=== PATIENT | female | born 1970 | race Caucasian/White ===

== ENCOUNTER 2016-12-31 21:28 | Observation (INO) | payer OTHER ==
[~2016-12-31] VITALS: Ht 149.9 cm; Wt 82.0 kg
[2016-12-31 21:35] VITALS: BP 146/73; PULSE 113; RESP 18; TEMP 98.4; O2SAT 98
[2016-12-31] MEDS ORDERED: SODIUM CHLOR 0.9% 1000 ML INJ 1,000 ML IV SCH (22:42)
[2016-12-31] MEDS ORDERED: MORPHINE SULFATE 4 MG/ML INJ IV PUSH ONE (22:45)
[2016-12-31] MEDS ORDERED: ONDANSETRON HCL 4 MG/2 ML VIAL IVP ONE (22:45)
--- NOTE | 2016-12-31 22:48 | PD ---
HPI Chief Complaint: Abdominal Pain Time Seen by Provider: 22:45 Travel History International Travel<30 days: No Contact w/Intl Traveler<30days: No Traveled to known affect area: No History of Present Illness HPI 38-year-old female that presents to the ED for evaluation of severe right lower quadrant abdominal pain. Patient has had this pain since 3:00 today. Per patient she was able to finish most of her shift but the pain has progressively getting worse and is not getting better. She reports no nausea or vomiting. Per patient she's had normal bowel movements. Per patient she had one of her tubes removed from his ear she's been taking Lortab and she was concerned missionary constipated but she's had a bowel movement today. Normal. She still has her appendix. She's had had surgeries in her abdomen. She has no allergies to medication. No chest pain or shortness of breath. Pain is 10 out of 10. PFSH Past Medical History Immunizations Current: Yes ?: Not Past Surgical History Section: Yes (X2) Gynecologic Surgery: Yes (UTERINE ABLATION) Oral Surgery: Yes Tonsillectomy: Yes Social History Alcohol Use: Yes Tobacco Use: Yes Substance Use: No Allergies-Medications (Allergen,Severity, Reaction): Coded Allergies: No Known Allergies (Unverified , 12/31/16) Review of Systems Except as stated in HPI: all other systems reviewed are Neg Physical Exam Narrative GENERAL: SKIN: Warm and dry. HEAD: Atraumatic. Normocephalic. EYES: Pupils equal and round. No scleral icterus. No injection or drainage. ENT: No nasal bleeding or discharge. Mucous membranes pink and moist. Tongue is midline. No uvula deviation. NECK: Trachea midline. No JVD. CARDIOVASCULAR: Regular rate and rhythm. No murmurs, S3, S4. RESPIRATORY: No accessory muscle use. Clear to auscultation. Breath sounds equal bilaterally. GASTROINTESTINAL: Abdomen soft, patient has reproducible pain on the right lower quadrant, patient has referred pain when touch in the left lower quadrant on the right, nondistended. Hepatic and splenic margins not palpable. MUSCULOSKELETAL: Extremities without clubbing, cyanosis, or edema. No obvious deformities. Full range of motion of the upper and lower extremities bilaterally. 2+ pulses bilaterally. NEUROLOGICAL: Awake and alert. No obvious cranial nerve deficits. Motor grossly within normal limits. Five out of 5 muscle strength in the arms and legs. Normal speech. PSYCHIATRIC: Appropriate mood and affect; insight and judgment normal. Data Data Last Documented VS Vital Signs Date Time Temp Pulse Resp B/P Pulse Ox O2 Delivery O2 Flow Rate FiO2 12/31/16 21:35 98.4 113 18 146/73 98 Room Air Orders Complete Blood Count With Diff (12/31/16 22:42) Comprehensive Metabolic Panel (12/31/16 22:42) Lipase (12/31/16 22:42) Lactic Acid (12/31/16 22:42) Urinalysis - C+S If Indicated (12/31/16 22:42) Ct Abd/Pel W Iv Contrast(Rout) (12/31/16 22:42) Iv Access Insert/Monitor (12/31/16 22:42) Morphine Inj (Morphine Inj) (12/31/16 22:45) Ondansetron Inj (Zofran Inj) (12/31/16 22:45) Sodium Chlor 0.9% 1000 Ml Inj (Ns 1000 M (12/31/16 22:42) Ed Urine Pregnancytest Poc (12/31/16 22:42) [facility] Medical Decision Making Medical Screen Exam Complete: Yes Emergency Medical Condition: Yes Medical Record Reviewed: Yes Differential Diagnosis Acute appendicitis versus diverticulitis versus kidney stone versus constipation versus obstruction Narrative Course 38-year-old female that presents to the ED for evaluation of right lower quadrant abdominal pain. Patient was properly examined and was found to have signs and symptoms very consistent and concerning for appendicitis. Labs and imaging were ordered. Patient was given IV pain medications and fluids. Case was signed out to my attending pending disposition. Eliazar Noel Dec 31, 2016 22:48
[2016-12-31] MEDS ORDERED: MORPHINE SULFATE 8 MG/ML INJ IV PUSH ONE (23:00)
[2016-12-31 23:20] LABS: AUTOMATED NEUTROPHIL # 16.5 TH/MM3 (1.8-7.7); BASOPHIL # 0.1 TH/MM3 (0-0.2); BASOPHIL % 0.3 % (0.0-2.0); EOSINOPHIL # 0.2 TH/MM3 (0-0.4); EOSINOPHIL % 0.7 % (0.0-4.0); HEMATOCRIT 39.4 % (35.0-46.0); HEMO FLAGS DIFF FINAL; LYMPH % 12.3 % (9.0-44.0); LYMPHOCYTE # 2.6 TH/MM3 (1.0-4.8); MEAN CELL VOLUME 90.7 FL (80.0-100.0); MEAN CORPUSCULAR HEMOGLOBIN 31.1 PG (27.0-34.0); MEAN CORPUSCULAR HGB CONC 34.3 % (32.0-36.0); MONO % 7.8 % (0.0-8.0); NEUT % 78.9 % (16.0-70.0); PLATELET COUNT 232 TH/MM3 (150-450); RED BLOOD COUNT 4.34 MIL/MM3 (4.00-5.30); RED CELL DISTRIBUTION WIDTH 13.9 % (11.6-17.2); WHITE BLOOD COUNT 20.9 TH/MM3 (4.0-11.0)
--- NOTE | 2016-12-31 23:31 | RADRPT ---
EXAM DATE/TIME: 12/31/2016 23:16 [place] COMPARISON: No previous studies available for comparison. INDICATIONS : Right lower quadrant pain; rule out appendicitis. ORAL CONTRAST: No oral contrast ingested. RADIATION DOSE: 16.68 CTDIvol (mGy) MEDICAL HISTORY : None SURGICAL HISTORY : section. ENCOUNTER: Initial ACUITY: 1 day PAIN SCALE: 10/10 LOCATION: Right lower quadrant abdomen TECHNIQUE: Volumetric scanning of the abdomen and pelvis was performed. Using automated exposure control and ad justment of the mA and/or kV according to patient size, radiation dose was kept as low as reasonably achievable to obtain optimal diagnostic quality images. DICOM format image data is available electro nically for review and comparison. FINDINGS: Liver, gallbladder, spleen, pancreas, stomach, adrenal glands, kidneys are unremarkable. Atherosclero tic calcifications of the aorta are identified. There is a fat containing umbilical hernia and a smal l infraumbilical fat containing hernia at the midline. Urinary bladder is unremarkable. Uterus and ov carroll are unremarkable. No evidence of bowel obstruction, free fluid or free air. Appendix is normal. No inflammatory changes are seen. Lung bases are clear. Osseous structures are intact. CONCLUSION: 1. No evidence of appendicitis. 2. Fat-containing umbilical hernia and infraumbilical fat-containing hernia is noted. 3. Aortic atherosclerosis. Jorge Grant MD on December 31, 2016 at 23:28 Board Certified Radiologist. This report was verified electronically.
[2016-12-31 23:40] LABS: ALT (GPT) 31 U/L (10-53)
[2016-12-31 23:43] LABS: ALKALINE PHOSPHATASE 114 U/L (45-117); TOTAL BILIRUBIN ADULT 0.4 MG/DL (0.2-1.0)
[2016-12-31] MEDS ORDERED: PIPERACIL-TAZO 4.5 GM PREMIX 100 ML IV ONE (23:45)
[2017-01-01] VITALS (9 sets, daily range): BP systolic 93–132; BP diastolic 52–61; PULSE 86–100; RESP 16–20; TEMP 97.8–99.7; O2SAT 93–95
[2017-01-01 00:14] LABS: ANION GAP 7 MEQ/L (5-15); AST (GOT) 25 U/L (15-37); BICARBONATE 23.5 MEQ/L (21.0-32.0); BLOOD UREA NITROGEN 10 MG/DL (7-18); CHLORIDE 106 MEQ/L (98-107); GLOMERULAR FILTRATION RATE 91 ML/MIN (>89); POTASSIUM 4.2 MEQ/L (3.5-5.1); SODIUM (NA) 136 MEQ/L (136-145)
[2017-01-01] MEDS ORDERED: MORPHINE SULFATE 8 MG/ML INJ IV PUSH ONE ×2 (00:45→01:45)
[2017-01-01 01:08] LABS: BLOOD, URINE NEG (NEG); GLUCOSE,URINE NEG (NEG); KETONE, URINE NEG (NEG); NITRITE,URINE NEG (NEG); URINE COLOR LIGHT-YELLOW (YELLW/STRAW)
[2017-01-01 01:24] LABS: COMMENT (UR) CULT NOT INDICATED; CULTURE IF INDICATED CULT NOT INDICATED
--- NOTE | 2017-01-01 01:33 | PD ---
Data Data Last Documented VS Vital Signs Date Time Temp Pulse Resp B/P Pulse Ox O2 Delivery O2 Flow Rate FiO2 01/01/17 00:50 95 18 132/59 95 Room Air 12/31/16 21:35 98.4 Orders Complete Blood Count With Diff (12/31/16 22:42) Comprehensive Metabolic Panel (12/31/16 22:42) Lipase (12/31/16 22:42) Lactic Acid (12/31/16 22:42) Urinalysis - C+S If Indicated (12/31/16 22:42) Iv Access Insert/Monitor (12/31/16 22:42) Morphine Inj (Morphine Inj) (12/31/16 22:45) Ondansetron Inj (Zofran Inj) (12/31/16 22:45) Sodium Chlor 0.9% 1000 Ml Inj (Ns 1000 M (12/31/16 22:42) Ed Urine Pregnancytest Poc (12/31/16 22:42) Morphine Inj (Morphine Inj) (12/31/16 23:00) Ct Abd/Pel W/O Iv Contrast (12/31/16 23:10) Piperacil-Tazo 4.5 Gm Premix (Zosyn 4.5 (12/31/16 23:45) Morphine Inj (Morphine Inj) (01/01/17 00:45) Admit Order (Ed Use Only) (01/01/17 01:33) Diet Clear Liquid (01/01/17 Breakfast) Activity Oob Ad Alla (01/01/17 01:33) Vital Signs (Adult) AISHA.Q4H (01/01/17 01:33) Labs Laboratory Tests Test 12/31/16 01/01/17 22:50 00:00 White Blood Count 20.9 TH/MM3 Red Blood Count 4.34 MIL/MM3 Hemoglobin 13.5 GM/DL Hematocrit 39.4 % Mean Corpuscular Volume 90.7 FL Mean Corpuscular Hemoglobin 31.1 PG Mean Corpuscular Hemoglobin 34.3 % Concent Red Cell Distribution Width 13.9 % Platelet Count 232 TH/MM3 Mean Platelet Volume 7.7 FL Neutrophils (%) (Auto) 78.9 % Lymphocytes (%) (Auto) 12.3 % Monocytes (%) (Auto) 7.8 % Eosinophils (%) (Auto) 0.7 % Basophils (%) (Auto) 0.3 % Neutrophils # (Auto) 16.5 TH/MM3 Lymphocytes # (Auto) 2.6 TH/MM3 Monocytes # (Auto) 1.6 TH/MM3 Eosinophils # (Auto) 0.2 TH/MM3 Basophils # (Auto) 0.1 TH/MM3 CBC Comment DIFF FINAL Differential Comment Lactic Acid Level 1.4 mmol/L Sodium Level 136 MEQ/L Potassium Level 4.2 MEQ/L Chloride Level 106 MEQ/L Carbon Dioxide Level 23.5 MEQ/L Anion Gap 7 MEQ/L Blood Urea Nitrogen 10 MG/DL Creatinine 0.69 MG/DL Estimat Glomerular Filtration 91 ML/MIN Rate Random Glucose 104 MG/DL Calcium Level 9.1 MG/DL Total Bilirubin 0.4 MG/DL Aspartate Amino Transf 25 U/L (AST/SGOT) Alanine Aminotransferase 31 U/L (ALT/SGPT) Alkaline Phosphatase 114 U/L Total Protein 7.3 GM/DL Albumin 3.8 GM/DL Lipase 213 U/L Urine Color LIGHT-YELLOW Urine Turbidity CLEAR Urine pH 5.0 Urine Specific [place] 1.005 Urine Protein NEG mg/dL Urine Glucose (UA) NEG mg/dL Urine Ketones NEG mg/dL Urine Occult Blood NEG Urine Nitrite NEG Urine Bilirubin NEG Urine Urobilinogen LESS THAN 2.0 MG/DL Urine Leukocyte Esterase NEG Urine RBC LESS THAN 1 /hpf Urine WBC LESS THAN 1 /hpf Microscopic Urinalysis Comment CULT NOT INDICATED MDM Supervised Visit with LAQUITA: Yes Narrative Course I, Dr. Shelby, have reviewed the advance practice practioner's documentation and am in agreement, met with the patient face to face, made the diagnosis, and the medical decision making was done by me. *My assessment and Findings: Patient is a 38-year-old female who presents emergency Department with complaint of right lower quadrant abdominal pain. 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 While on shift today at approximately 3 PM she developed right lower quadrant abdominal pain. This is gradually worsened. When she went home she felt nauseous, but no vomiting. She returns the emergency department for evaluation. She denies any urinary symptoms or previous abdominal surgeries. Patient is quite tender, greatest at McBurney's point in the right lower quadrant. Strong concern for appendicitis versus ureterolithiasis and less likely UTI. Laboratory workup notable for leukocytosis of 20,000. Patient was empirically covered with Zosyn. CT of the abdomen and pelvis is negative, the appendix looks normal and does not appear to be any other infectious source. I still am concerned for early appendicitis that we are missing radiographically and patient is still quite uncomfortable despite repeat doses of morphine. Patient will be admitted for observation and serial abdominal examinations. Diagnosis Primary Impression: Abdominal pain, acute, right lower quadrant Additional Impression: Leukocytosis Qualified Code: D72.829 - Leukocytosis, unspecified type Admitting Information Admitting Physician Requests: Mary Segundo MD Jan 01, 2017 01:33
[2017-01-01] MEDS ORDERED: oxyCODONE/ACETAMINOPHEN 5 MG/325 MG TAB PO ONE (01:45)
[2017-01-01] MEDS ORDERED: LEXA20TA PO (04:00)
[2017-01-01] MEDS ORDERED: MORPHINE SULFATE 8 MG/ML INJ IV PUSH PRN (11:15)
[2017-01-01] MEDS: ONDANSETRON HCL 4 MG/2 ML VIAL IV PUSH PRN ×2 (11:36→20:28)
[2017-01-01] MEDS ORDERED: PROMETHAZINE HCL 25 MG TAB PO PRN (11:45)
[2017-01-01] MEDS ORDERED: METOCLOPRAMIDE HCL 10 MG/2 ML VIAL IV PUSH ONE (11:45)
[2017-01-01] MEDS ORDERED: KETOROLAC TROMETHAMINE 30 MG/ML (IVP) VIAL IV PUSH ONE (11:45)
[2017-01-01] MEDS ORDERED: PROMETHAZINE HCL 25 MG SUPP RECTAL PRN (11:45)
--- NOTE | 2017-01-01 11:46 | HHI.PR ---
Subjective Remarks vomiting with rlq pains Objective Vitals vomiting oriented no labored breathing sweating heart reg lung cta abd bs/rlq tender. no rebound or distention. ext no edema Vital Signs Date Time Temp Pulse Resp B/P Pulse Ox O2 Delivery O2 Flow Rate FiO2 01/01/17 08:17 97.8 90 18 96/54 95 01/01/17 06:12 129/61 01/01/17 04:19 98.4 98 20 94 01/01/17 03:53 100 16 112/53 93 Aerosol Mask 01/01/17 00:50 95 18 132/59 95 Room Air 12/31/16 21:35 98.4 113 18 146/73 98 Room Air 12/31/16 12/31/16 01/01/17 15:00 23:00 07:00 Intake Total 250 ml Balance 250 ml Intake Oral 250 ml Result Diagram: 12/31/16224912/31/160 A/P Problem List: (1) Abdominal pain, acute, right lower quadrant Status: Acute Plan: Presents with acute rlq pain of unclear etiology CT a/p negative for acute process no evidence for colitis/obstruction/stone/uterine or ovarian abnormality. no findings of kidney stone or abnormality with urinalysis Pt currently vomiting wbc 20k. was taking some pain meds this past week for dental procedure. ...mild increase in stool right colon. supportive care toradol now ppi/reglan/antiemetics clears prn pain meds...?morphine contributing to vomiting consider reimaging within next 24 hr if no better. Colin Davidson MD Jan 01, 2017 11:46
--- NOTE | 2017-01-01 11:48 | HHI.HP ---
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 she recently moved to [place]. Yesterday has sudden onset rlq pain with nausea. This morning now having some nausea/vomiting. No constipation or diarrhea. no fever/chills or any new medication other than pain med given last week after dental procedure. No blood in stool and no dysuria or hx kidney stones. no vaginal bleeding reported. ED was concerned about appendicitis but ct a/p was negative for acute process. she had wbc 20k and given zosyn. Review of Systems Other rlq pain n/v Past Family Social History Past Medical History depression c sections endometrial ablation exp lap for "lysis of adhesions in pelvis" Reported Medications Reported Meds & Active Scripts Active Reported Lexapro (Escitalopram Oxalate) 20 Mg Tab 20 Mg PO DAILY Allergies: Coded Allergies: No Known Allergies (Unverified , 12/31/16) Family History nc Social History 1ppd tob no sig etoh Physical Exam Vital Signs vomiting oriented no labored breathing sweating heart reg lung cta abd bs/rlq tender. no rebound or distention. ext no edema Laboratory Laboratory Tests Test 12/31/16 01/01/17 22:50 00:00 White Blood Count 20.9 Red Blood Count 4.34 Hemoglobin 13.5 Hematocrit 39.4 Mean Corpuscular Volume 90.7 Mean Corpuscular Hemoglobin 31.1 Mean Corpuscular Hemoglobin 34.3 Concent Red Cell Distribution Width 13.9 Platelet Count 232 Mean Platelet Volume 7.7 Neutrophils (%) (Auto) 78.9 Lymphocytes (%) (Auto) 12.3 Monocytes (%) (Auto) 7.8 Eosinophils (%) (Auto) 0.7 Basophils (%) (Auto) 0.3 Neutrophils # (Auto) 16.5 Lymphocytes # (Auto) 2.6 Monocytes # (Auto) 1.6 Eosinophils # (Auto) 0.2 Basophils # (Auto) 0.1 CBC Comment DIFF FINAL Differential Comment Lactic Acid Level 1.4 Sodium Level 136 Potassium Level 4.2 Chloride Level 106 Carbon Dioxide Level 23.5 Anion Gap 7 Blood Urea Nitrogen 10 Creatinine 0.69 Estimat Glomerular Filtration 91 Rate Random Glucose 104 Calcium Level 9.1 Total Bilirubin 0.4 Aspartate Amino Transf 25 (AST/SGOT) Alanine Aminotransferase 31 (ALT/SGPT) Alkaline Phosphatase 114 Total Protein 7.3 Albumin 3.8 Lipase 213 Urine Color LIGHT-YELLOW Urine Turbidity CLEAR Urine pH 5.0 Urine Specific [place] 1.005 Urine Protein NEG Urine Glucose (UA) NEG Urine Ketones NEG Urine Occult Blood NEG Urine Nitrite NEG Urine Bilirubin NEG Urine Urobilinogen LESS THAN 2.0 Urine Leukocyte Esterase NEG Urine RBC LESS THAN 1 Urine WBC LESS THAN 1 Microscopic Urinalysis Comment CULT NOT INDICATED Result Diagram: 12/31/16224912/31/162249 Assessment and Plan Problem List: (1) Abdominal pain, acute, right lower quadrant Status: Acute Plan: Presents with acute rlq pain of unclear etiology CT a/p negative for acute process no evidence for colitis/obstruction/stone/uterine or ovarian abnormality. no findings of kidney stone or abnormality with urinalysis Pt currently vomiting wbc 20k. was taking some pain meds this past week for dental procedure. ...mild increase in stool right colon. supportive care toradol now ppi/reglan/antiemetics clears prn pain meds...?morphine contributing to vomiting consider reimaging within next 24 hr if no better. Colin Davidson MD Jan 01, 2017 11:48 Random Glucose 104 Calcium Level 9.1 Total Bilirubin 0.4 Aspartate Amino Transf 25 (AST/SGOT) Alanine Aminotransferase 31 (ALT/SGPT) Alkaline Phosphatase 114 Total Protein 7.3 Albumin 3.8 Lipase 213 Urine Color LIGHT-YELLOW Urine Turbidity CLEAR Urine pH 5.0 Urine Specific [place] 1.005 Urine Protein NEG Urine Glucose (UA) NEG Urine Ketones NEG Urine Occult Blood NEG Urine Nitrite NEG Urine Bilirubin NEG Urine Urobilinogen LESS THAN 2.0 Urine Leukocyte Esterase NEG Urine RBC LESS THAN 1 Urine WBC LESS THAN 1 Microscopic Urinalysis Comment CULT NOT INDICATED Result Diagram: 12/31/16224912/31/162249 Assessment and Plan Problem List: (1) Abdominal pain, acute, right lower quadrant Status: Acute Plan: Presents with acute rlq pain of unclear etiology CT a/p negative for acute process no evidence for colitis/obstruction/stone/uterine or ovarian abnormality. no findings of kidney stone or abnormality with urinalysis Pt currently vomiting wbc 20k. was taking some pain meds this past week for dental procedure. ...mild increase in stool right colon. supportive care toradol now ppi/reglan/antiemetics clears prn pain meds...?morphine contributing to vomiting consider reimaging within next 24 hr if no better. Colin Davidson MD Jan 01, 2017 11:48
[2017-01-01] MEDS ORDERED: IBUPROFEN 400 MG TAB PO PRN (12:00)
[2017-01-01] MEDS: SODIUM CHLOR 0.9% 1000 ML INJ 1,000 ML IV SCH (12:00)
[2017-01-01] MEDS ORDERED: BISACODYL EC 5 MG TABEC PO PRN (12:15)
[2017-01-01] MEDS: PANTOPRAZOLE SODIUM 40 MG VIAL IV PUSH SCH (13:04)
[2017-01-01 13:13] LABS: AUTOMATED NEUTROPHIL # 9.9 TH/MM3 (1.8-7.7); BASOPHIL % 0.2 % (0.0-2.0); EOSINOPHIL # 0.1 TH/MM3 (0-0.4); EOSINOPHIL % 0.6 % (0.0-4.0); HEMATOCRIT 37.2 % (35.0-46.0); HEMO FLAGS DIFF FINAL; LYMPH % 9.7 % (9.0-44.0); LYMPHOCYTE # 1.1 TH/MM3 (1.0-4.8); MEAN CORPUSCULAR HEMOGLOBIN 31.1 PG (27.0-34.0); MEAN CORPUSCULAR HGB CONC 33.8 % (32.0-36.0); MONO % 6.1 % (0.0-8.0); NEUT % 83.4 % (16.0-70.0); PLATELET COUNT 208 TH/MM3 (150-450); RED BLOOD COUNT 4.05 MIL/MM3 (4.00-5.30); RED CELL DISTRIBUTION WIDTH 13.9 % (11.6-17.2); WHITE BLOOD COUNT 11.8 TH/MM3 (4.0-11.0)
[2017-01-01 13:31] LABS: BICARBONATE 25.6 MEQ/L (21.0-32.0); POTASSIUM 3.6 MEQ/L (3.5-5.1)
[2017-01-01] MEDS ORDERED: TEMAZEPAM 15 MG CAP PO PRN (14:00)
[2017-01-01] MEDS ORDERED: BISACODYL EC 5 MG TABEC PO ONE (15:00)
[2017-01-01] MEDS ORDERED: LACTULOSE SYRUP 20 GM/30 ML CUP PO ONE (15:00)
[2017-01-01] MEDS: DOCUSATE SODIUM 100 MG CAP PO SCH (20:27)
[2017-01-02 00:05] VITALS: BP 107/58; PULSE 90; RESP 17; TEMP 98.4; O2SAT 95
[2017-01-02] MEDS: SODIUM CHLOR 0.9% 1000 ML INJ 1,000 ML IV SCH ×2 (02:20→09:50)
[2017-01-02 04:04] VITALS: BP 100/62; PULSE 79; RESP 18; TEMP 98; O2SAT 96
[2017-01-02 07:37] VITALS: BP 131/64; PULSE 96; RESP 20; TEMP 98.8; O2SAT 94
[2017-01-02] MEDS ORDERED: ESCITALOPRAM OXALATE 20 MG TAB PO SCH (09:00)
[2017-01-02] MEDS: DOCUSATE SODIUM 100 MG CAP PO SCH (09:49)
[2017-01-02 11:55] VITALS: BP 128/70; PULSE 79; RESP 20; TEMP 98.8; O2SAT 98
[2017-01-02] MEDS: PANTOPRAZOLE SODIUM 40 MG VIAL IV PUSH SCH (12:19)
--- NOTE | 2017-01-02 13:21 | HHI.PR ---
Subjective Remarks No new complaints. Pt's abdominal pain is resolved. Pt now having multiple bowel movements after receiving laxative. Pt requesting discharge. Objective Vitals Vital Signs Date Time Temp Pulse Resp B/P Pulse Ox O2 Delivery O2 Flow Rate FiO2 01/02/17 11:55 98.8 79 20 128/70 98 01/02/17 07:37 98.8 96 20 131/64 94 01/02/17 04:04 98.0 79 18 100/62 96 01/02/17 00:05 98.4 90 17 107/58 95 01/01/17 21:05 98.3 01/01/17 19:38 99.2 90 17 118/59 93 01/01/17 18:37 18 01/01/17 15:38 99.7 86 16 108/52 94 Result Diagram: 01/01/17 1227 01/01/17 1227 Imaging Last Impressions Abdomen/Pelvis CT 12/31/16 2310 Signed Impressions: Service Date/Time: Saturday, December 31, 2016 23:16 - CONCLUSION: 1. No evidence of appendicitis. 2. Fat-containing umbilical hernia and infraumbilical fat-containing hernia is noted. 3. Aortic atherosclerosis. Jorge Grant MD Objective Remarks GENERAL: This is a well-nourished, well-developed patient, in no apparent distress. CARDIOVASCULAR: Regular rate and rhythm without murmurs, gallops, or rubs. RESPIRATORY: Clear to auscultation. Breath sounds equal bilaterally. No wheezes , rales, or rhonchi. GASTROINTESTINAL: Abdomen soft, non-tender, nondistended. Normal active bowel sounds MUSCULOSKELETAL: Extremities without clubbing, cyanosis, or edema. NEURO: Alert & Oriented x4 to person, place, time, situation. Moves all ext x4 A/P Problem List: (1) Abdominal pain, acute, right lower quadrant Status: Acute Plan: - Pt presented with acute rlq pain of unclear etiology and n/v - CT a/p negative for acute process - no evidence for colitis/obstruction/stone/uterine or ovarian abnormality. No findings of kidney stone or abnormality with urinalysis - wbc 20k on admission, 11.8 (01/01/17) - Pt was taking some pain meds this past week for dental procedure. - mild increase in stool right colon. - Pt given colace, laxative with resolution of above symptoms - will discharge to home - f/u with PCP in 1 week - prn MOM, prune juice Sukhi Ruelas DO Jan 02, 2017 13:21
[2017-01-02] MEDS ORDERED: MILKSUS PO (13:23)
== END 2017-01-02 14:37 | disposition home or self-care (01) ==
LOC: NEPE 21:28 → NEDA 01-01 01:35 → NEPGCP 01-01 03:54
PROVIDERS: ADMIT Hospitalist; ATTEND Hospitalist
DX: R10.31 Right lower quadrant pain (principal); D72.829 Elevated white blood cell count, unspecified; R11.2 Nausea with vomiting, unspecified; K59.00 Constipation, unspecified; K42.9 Umbilical hernia without obstruction or gangrene; I70.0 Atherosclerosis of aorta; F32.9 Major depressive disorder, single episode, unspecified; F17.200 Nicotine dependence, unspecified, uncomplicated; Z79.899 Other long term (current) drug therapy
CPT/HCPCS: 74176; 80048; 80053; 81001; 83605; 83690; 84703; 85025; 96374; 96375; 99285; C9113; G0378; J1885; J2270; J2405; J2543; J2765; J7030

== ENCOUNTER 2017-01-11 03:44 | Emergency (ER) | payer OTHER ==
[~2017-01-11] VITALS: Ht 149.9 cm; Wt 82.0 kg
[~2017-01-11 03:44] MED LIST: LEXA20TA PO; MILKSUS PO
[2017-01-11 03:47] VITALS: BP 133/66; PULSE 101; RESP 18; TEMP 98.3; O2SAT 97
[2017-01-11] MEDS ORDERED: MORPHINE SULFATE 4 MG/ML INJ IV PUSH ONE (06:00)
[2017-01-11] MEDS ORDERED: ONDANSETRON HCL 4 MG/2 ML VIAL IV ONE (06:00)
[2017-01-11] MEDS ORDERED: SODIUM CHLOR 0.9% 1000 ML INJ 1,000 ML IV ONE (06:00)
[2017-01-11 06:02] VITALS: O2SAT 97
--- NOTE | 2017-01-11 06:05 | PD ---
HPI Chief Complaint: GI Complaint Time Seen by Provider: 05:48 Travel History International Travel<30 days: No Contact w/Intl Traveler<30days: No Traveled to known affect area: No History of Present Illness HPI The patient is a 46 year old female who presents to the [facility] emergency department with a history of being on 3 different courses of antibiotics since early in December related to a dental infection and surgical treatment for the infection. The patient reports that 3 weeks ago she began to have loose stools every morning that were pale in color. She reports that she then approximately a week ago developed abrupt onset of right-sided abdominal pain. The patient was seen in the emergency department on December 31 and had a CAT scan done. Her symptoms were reportedly suspicious for appendicitis. The patient reports that her white cell count was elevated. The CT scan showed no evidence of appendicitis or any other acute abnormality, however the patient continued to have pain and was admitted to the hospital for evaluation and treatment. The patient reports that it was thought that the antibiotic use and pain medication use related to her surgical procedure and dental infection and cause her to develop worsening constipation. The patient reports that since discharge she has been using stool softeners and laxatives. She reports that she has only been producing violent watery stools and developed a recurrence of pain requiring evaluation in the walk-in clinic 2 days ago. She reports that they did a plain abdominal film and it showed that she had stool all throughout her colon. She was told to take milk of magnesia. She took milk of magnesia yesterday and 6 enemas. She reports that since then she's continued to have abdominal pain in the right side of her abdomen. She reports that today she is also had difficulty urinating without sitting hunched over. She denies having any dysuria, urinary frequency, or urinary urgency. The patient's past medical history is significant for having irritable bowel syndrome with chronic constipation. She reports that she last had a colonoscopy 3 years ago with polyps resected. She reports that over the last 3 weeks she's had a 15 pound weight loss. The patient reports that she's had nausea without vomiting. The patient denies any recent fevers, cough, congestion, neck pain, chest pain, shortness of breath, or neurologic symptoms. [facility] Past Medical History Narrative Medical The patient's past medical history is significant for irritable bowel syndrome, constipation, anxiety disorder. Blood Disorders: No Anxiety: Yes Depression: No Heart Rhythm Problems: No Cancer: No Cardiovascular Problems: No High Cholesterol: No Chest Pain: No Congestive Heart Failure: No Diminished Hearing: No Endocrine: No Gastrointestinal Disorders: Yes (IBS) Genitourinary: No Immune Disorder: No Musculoskeletal: No Neurologic: No Psychiatric: Yes Reproductive: No Respiratory: No Immunizations Current: Yes ?: Not Past Surgical History Narrative Surgical The patient's past surgical history is significant for oral surgery, uterine ablation, tonsillectomy. Section: Yes (X2) Gynecologic Surgery: Yes (UTERINE ABLATION) Oral Surgery: Yes Tonsillectomy: Yes Social History Alcohol Use: Yes Tobacco Use: Yes Substance Use: No Allergies-Medications (Allergen,Severity, Reaction): Coded Allergies: No Known Allergies (Unverified , 01/11/17) Reported Meds & Prescriptions Reported Meds & Active Scripts Active Reported Lexapro (Escitalopram Oxalate) 20 Mg Tab 20 Mg PO DAILY Review of Systems Except as stated in HPI: all other systems reviewed are Neg General / Constitutional: No: Fever Eyes: No: Visual changes HENT: No: Headaches Cardiovascular: No: Chest Pain or Discomfort Respiratory: No: Shortness of Breath Gastrointestinal: Positive: Nausea, Diarrhea, Abdominal Pain, Constipation, Changes in Bowel Habits, Loss of Appetite, No: Vomiting, Hematemesis, Hematochezia, Indigestion Genitourinary: No: Dysuria Musculoskeletal: No: Pain Skin: No Rash Neurologic: No: Weakness Psychiatric: No: Depression Endocrine: No: Polydipsia Hematologic/Lymphatic: No: Easy Bruising Physical Exam Narrative General: The patient is a well-developed well-nourished female who is uncomfortable appearing on arrival related to abdominal pain. Head and Neck exam: Head is normocephalic atraumatic. Eyes: EOMI, pupils are equal round and reactive to light. Nose: Midline septum with pink mucous membranes Mouth: Dentition unremarkable. Moist mucus membranes. Posterior oropharynx is not erythematous. No tonsillar hypertrophy. Uvula midline. Airway patent. Neck: No palpable lymphadenopathy. No nuchal rigidity. No thyromegaly. Cardiovascular: Sinus tachycardia in the low 100s without murmurs, gallops, or rubs. No pulse deficit to the extremities and simultaneous auscultation and palpation of her radial artery. Lungs: Clear to auscultation bilaterally. No wheezes, rhonchi, or rales. Abdomen: Soft, with tenderness on palpation of the right upper and lower quadrant of the abdomen. The patient has tenderness on palpation of McBurney's point. Normal bowel sounds are audible. No guarding, rebound, or rigidity. Negative [place] sign. Extremities: No clubbing, cyanosis, or edema. 2+ pulses in all 4 extremities. No calf tenderness on palpation. Back: No costovertebral angle tenderness to palpation. Neurologic Exam: Grossly nonfocal. Skin Exam: No rash noted. Intact skin that is warm and dry. Data Data Last Documented VS Vital Signs Date Time Temp Pulse Resp B/P Pulse Ox O2 Delivery O2 Flow Rate FiO2 01/11/17 06:30 14 01/11/17 06:26 89 141/65 97 Room Air 01/11/17 03:47 98.3 Orders Electrocardiogram (01/11/17 05:48) Complete Blood Count With Diff (01/11/17 05:48) Comprehensive Metabolic Panel (01/11/17 05:48) Lipase (01/11/17 05:48) Urinalysis - C+S If Indicated (01/11/17 05:48) Westergren Sedimentation Rate (01/11/17 05:48) Magnesium (Mg) (01/11/17 05:48) Chest, Single Ap (01/11/17 05:48) Ct Abd/Pel W Iv Contrast(Rout) (01/11/17 05:48) Iv Access Insert/Monitor (01/11/17 05:48) Ecg Monitoring (01/11/17 05:48) Oximetry (01/11/17 05:48) Ed Urine Pregnancytest Poc (01/11/17 05:48) Sodium Chlor 0.9% 1000 Ml Inj (Ns 1000 M (01/11/17 06:00) Ondansetron Inj (Zofran Inj) (01/11/17 06:00) Morphine Inj (Morphine Inj) (01/11/17 06:00) Diatrizoate Liq ( Gastroview Liq) (01/11/17 06:35) Labs Laboratory Tests Test 01/11/17 05:50 White Blood Count 16.1 TH/MM3 Red Blood Count 4.41 MIL/MM3 Hemoglobin 13.9 GM/DL Hematocrit 40.7 % Mean Corpuscular Volume 92.2 FL Mean Corpuscular Hemoglobin 31.5 PG Mean Corpuscular Hemoglobin 34.1 % Concent Red Cell Distribution Width 13.5 % Platelet Count 328 TH/MM3 Mean Platelet Volume 7.3 FL Neutrophils (%) (Auto) 74.4 % Lymphocytes (%) (Auto) 14.9 % Monocytes (%) (Auto) 9.3 % Eosinophils (%) (Auto) 1.2 % Basophils (%) (Auto) 0.2 % Neutrophils # (Auto) 11.9 TH/MM3 Lymphocytes # (Auto) 2.4 TH/MM3 Monocytes # (Auto) 1.5 TH/MM3 Eosinophils # (Auto) 0.2 TH/MM3 Basophils # (Auto) 0.0 TH/MM3 CBC Comment DIFF FINAL Differential Comment Urine Color LIGHT-YELLOW Urine Turbidity CLEAR Urine pH 7.0 Urine Specific [place] 1.003 Urine Protein NEG mg/dL Urine Glucose (UA) NEG mg/dL Urine Ketones NEG mg/dL Urine Occult Blood NEG Urine Nitrite NEG Urine Bilirubin NEG Urine Urobilinogen LESS THAN 2.0 MG/DL Urine Leukocyte Esterase NEG Urine RBC 1 /hpf Urine WBC LESS THAN 1 /hpf Microscopic Urinalysis Comment CULT NOT INDICATED Sodium Level 139 MEQ/L Potassium Level 3.4 MEQ/L Chloride Level 105 MEQ/L Carbon Dioxide Level 26.6 MEQ/L Anion Gap 7 MEQ/L Blood Urea Nitrogen 6 MG/DL Creatinine 0.73 MG/DL Estimat Glomerular Filtration 85 ML/MIN Rate Random Glucose 116 MG/DL Calcium Level 8.6 MG/DL Magnesium Level 2.9 MG/DL Total Bilirubin 0.3 MG/DL Aspartate Amino Transf 16 U/L (AST/SGOT) Alanine Aminotransferase 31 U/L (ALT/SGPT) Alkaline Phosphatase 73 U/L Total Protein 6.8 GM/DL Albumin 3.6 GM/DL Lipase 108 U/L [facility] Medical Decision Making Medical Screen Exam Complete: Yes Emergency Medical Condition: Yes Medical Record Reviewed: Yes Differential Diagnosis Exacerbation of irritable bowel syndrome, versus bowel obstruction, versus recurrent constipation, versus colitis, versus diverticulitis Narrative Course During the course of the patients emergency department visit, the patients history, examination, and differential diagnosis were reviewed with the patient. The patient had IV access obtained and blood work sent for analysis. Patient was placed on a electric deicer assembler with oximetry and blood pressure monitoring. An ECG was done on arrival. The patient's ECG reveals a sinus rhythm heart rate of 85, nonspecific T-wave abnormalities, no acute ST segment elevation, T waves are inverted in lead 3, V1, V2, V3, V4. QRS duration is 85 ms, QTC is 387 ms. The patient was initially provided normal saline 1 L IV fluid bolus, morphine 4 mg IV for pain, Zofran 4 mg IV for nausea. The patients laboratory studies were reviewed and remarkable for a white count of 16.1, hemoglobin 13.9, platelets 328 with 74.4 neutrophils, monocytes 9.3. CMP is remarkable for potassium of 3.4, BUN 6, glucose 116, magnesium 2.9, lipase 108 , urinalysis is within normal limits. Radiology studies were reviewed and remarkable for a chest x-ray that shows no acute cardiopulmonary disease, no free air. A CT scan of the abdomen and pelvis is also been ordered with the addition of oral contrast this time as previously it was done only with IV contrast. The patient's case will be checked out to the oncoming emergency physician to disposition the patient based on the conclusion of her workup. Diagnosis Primary Impression: Abdominal pain, acute, right lower quadrant Carol Luna MD Jan 11, 2017 06:05
[2017-01-11 06:21] LABS: AUTOMATED NEUTROPHIL # 11.9 TH/MM3 (1.8-7.7); BASOPHIL % 0.2 % (0.0-2.0); EOSINOPHIL # 0.2 TH/MM3 (0-0.4); EOSINOPHIL % 1.2 % (0.0-4.0); HEMATOCRIT 40.7 % (35.0-46.0); HEMO FLAGS DIFF FINAL; LYMPH % 14.9 % (9.0-44.0); LYMPHOCYTE # 2.4 TH/MM3 (1.0-4.8); MEAN CELL VOLUME 92.2 FL (80.0-100.0); MEAN CORPUSCULAR HEMOGLOBIN 31.5 PG (27.0-34.0); MEAN CORPUSCULAR HGB CONC 34.1 % (32.0-36.0); MONO % 9.3 % (0.0-8.0); NEUT % 74.4 % (16.0-70.0); PLATELET COUNT 328 TH/MM3 (150-450); RED BLOOD COUNT 4.41 MIL/MM3 (4.00-5.30); RED CELL DISTRIBUTION WIDTH 13.5 % (11.6-17.2); WHITE BLOOD COUNT 16.1 TH/MM3 (4.0-11.0)
[2017-01-11 06:26] VITALS: BP 141/65; PULSE 89; RESP 19; O2SAT 97
[2017-01-11] MEDS ORDERED: DIATRIZOATE MEGLUM/DIATRIZOATE SOD 9 ML CUP ONE (06:35)
--- NOTE | 2017-01-11 06:46 | RADRPT ---
EXAM DATE/TIME: 01/11/2017 06:22 [facility] COMPARISON: CT ABDOMEN & PELVIS W/O CONTRAST, December 31, 2016, 23:16. INDICATIONS : Chest pain. MEDICAL HISTORY : None. SURGICAL HISTORY : None. ENCOUNTER: Initial ACUITY: 1 day PAIN SCORE: 0/10 LOCATION: Bilateral chest FINDINGS: Portable AP view of the chest demonstrates a normal-sized cardiac silhouette. No effusion, consolidat ion, or pneumothorax is visualized. The bones and soft tissues demonstrate no acute abnormality. CONCLUSION: No acute cardiopulmonary abnormality is identified. Shabbir Montano MD on January 11, 2017 at 6:44 Board Certified Radiologist. This report was verified electronically.
[2017-01-11 06:48] LABS: BLOOD, URINE NEG (NEG); GLUCOSE,URINE NEG (NEG); KETONE, URINE NEG (NEG); NITRITE,URINE NEG (NEG); URINE COLOR LIGHT-YELLOW (YELLW/STRAW)
[2017-01-11 06:49] LABS: ANION GAP 7 MEQ/L (5-15); AST (GOT) 16 U/L (15-37); BICARBONATE 26.6 MEQ/L (21.0-32.0); BLOOD UREA NITROGEN 6 MG/DL (7-18); CHLORIDE 105 MEQ/L (98-107); GLOMERULAR FILTRATION RATE 85 ML/MIN (>89); MAGNESIUM 2.9 MG/DL (1.5-2.5); POTASSIUM 3.4 MEQ/L (3.5-5.1); SODIUM (NA) 139 MEQ/L (136-145)
[2017-01-11 06:53] LABS: ALKALINE PHOSPHATASE 73 U/L (45-117); ALT (GPT) 31 U/L (10-53); TOTAL BILIRUBIN ADULT 0.3 MG/DL (0.2-1.0)
[2017-01-11 06:55] LABS: COMMENT (UR) CULT NOT INDICATED; CULTURE IF INDICATED CULT NOT INDICATED
--- NOTE | 2017-01-11 08:50 | PD ---
Physical Exam Date Seen by Provider: Jan 11, 2017 Time Seen by Provider: 08:30 Narrative The patient was signed out to me by Dr. Caorl Luna at 8:30 AM. Please see her H&P for specific details. 46-year-old female presents with abdominal discomfort. The patient was seen last week for similar findings. She was told at that time that she was constipated. Concern at that time was that she possibly could have an appendicitis. CT scan was pending at the time of sign out. Data Data Last Documented VS Vital Signs Date Time Temp Pulse Resp B/P Pulse Ox O2 Delivery O2 Flow Rate FiO2 01/11/17 06:30 14 01/11/17 06:26 89 141/65 97 Room Air 01/11/17 03:47 98.3 Orders Electrocardiogram (01/11/17 05:48) Complete Blood Count With Diff (01/11/17 05:48) Comprehensive Metabolic Panel (01/11/17 05:48) Lipase (01/11/17 05:48) Urinalysis - C+S If Indicated (01/11/17 05:48) Westergren Sedimentation Rate (01/11/17 05:48) Magnesium (Mg) (01/11/17 05:48) Chest, Single Ap (01/11/17 05:48) Ct Abd/Pel W Iv Contrast(Rout) (01/11/17 05:48) Iv Access Insert/Monitor (01/11/17 05:48) Ecg Monitoring (01/11/17 05:48) Oximetry (01/11/17 05:48) Ed Urine Pregnancytest Poc (01/11/17 05:48) Sodium Chlor 0.9% 1000 Ml Inj (Ns 1000 M (01/11/17 06:00) Ondansetron Inj (Zofran Inj) (01/11/17 06:00) Morphine Inj (Morphine Inj) (01/11/17 06:00) Diatrizoate Liq ( Gastroview Liq) (01/11/17 06:35) Iohexol 350 Inj (Omnipaque 350 Inj) (01/11/17 10:42) Labs Laboratory Tests Test 01/11/17 05:50 White Blood Count 16.1 TH/MM3 Red Blood Count 4.41 MIL/MM3 Hemoglobin 13.9 GM/DL Hematocrit 40.7 % Mean Corpuscular Volume 92.2 FL Mean Corpuscular Hemoglobin 31.5 PG Mean Corpuscular Hemoglobin 34.1 % Concent Red Cell Distribution Width 13.5 % Platelet Count 328 TH/MM3 Mean Platelet Volume 7.3 FL Neutrophils (%) (Auto) 74.4 % Lymphocytes (%) (Auto) 14.9 % Monocytes (%) (Auto) 9.3 % Eosinophils (%) (Auto) 1.2 % Basophils (%) (Auto) 0.2 % Neutrophils # (Auto) 11.9 TH/MM3 Lymphocytes # (Auto) 2.4 TH/MM3 Monocytes # (Auto) 1.5 TH/MM3 Eosinophils # (Auto) 0.2 TH/MM3 Basophils # (Auto) 0.0 TH/MM3 CBC Comment DIFF FINAL Differential Comment Erythrocyte Sedimentation Rate 14 mm/hr Urine Color LIGHT-YELLOW Urine Turbidity CLEAR Urine pH 7.0 Urine Specific [place] 1.003 Urine Protein NEG mg/dL Urine Glucose (UA) NEG mg/dL Urine Ketones NEG mg/dL Urine Occult Blood NEG Urine Nitrite NEG Urine Bilirubin NEG Urine Urobilinogen LESS THAN 2.0 MG/DL Urine Leukocyte Esterase NEG Urine RBC 1 /hpf Urine WBC LESS THAN 1 /hpf Microscopic Urinalysis Comment CULT NOT INDICATED Sodium Level 139 MEQ/L Potassium Level 3.4 MEQ/L Chloride Level 105 MEQ/L Carbon Dioxide Level 26.6 MEQ/L Anion Gap 7 MEQ/L Blood Urea Nitrogen 6 MG/DL Creatinine 0.73 MG/DL Estimat Glomerular Filtration 85 ML/MIN Rate Random Glucose 116 MG/DL Calcium Level 8.6 MG/DL Magnesium Level 2.9 MG/DL Total Bilirubin 0.3 MG/DL Aspartate Amino Transf 16 U/L (AST/SGOT) Alanine Aminotransferase 31 U/L (ALT/SGPT) Alkaline Phosphatase 73 U/L Total Protein 6.8 GM/DL Albumin 3.6 GM/DL Lipase 108 U/L [facility] Medical Record Reviewed: Yes Supervised Visit with LAQUITA: No Narrative Course 46-year-old female presents for the second time in one week with abdominal pain and loose stools. The patient has a CT scan that shows colitis. Given this, she'll be treated with Cipro and Flagyl and she will also be treated with prednisone 40 mg daily 5 days. We were able to make an appointment for her to see Dr. Mccrary tomorrow at noon. [place] diet and advance as tolerated. Return as needed. Diagnosis Primary Impression: Abdominal pain, acute, right lower quadrant Additional Impressions: Colitis colitis Referrals: Dottie Costa MD Patient Instructions: General Instructions Departure Forms: Tests/Procedures Additional Instruction: Go to see Dr. Mccrary at 12 noon tomorrow. Appointment has been made for you. Stop the magnesium citrate and milk of magnesia. [place] diet and advance as tolerated. Take antibiotics as prescribed. Med/Other Pt SpecificInfo: Prescription(s) given Scripts Prednisone 20 Mg Tab40 Mg PO DAILY #10 TAB Ref 0 Take 40 mg (2 tablets) daily for 5 days Prov:Esteban Hay MD 01/11/17 Metronidazole 500 Mg [id number] Mg PO TID #21 TAB Ref 0 Prov:Esteban Hay MD 01/11/17 Ciprofloxacin 500 Mg [id number] Mg PO BID #14 TAB Ref 0 Prov:Esteban Hay MD 01/11/17 Disposition: 01 DISCHARGE HOME Condition: Stable Esteban Hay MD Jan 11, 2017 08:50
[2017-01-11 10:00] VITALS: BP 111/56; PULSE 73; RESP 17; O2SAT 97
[2017-01-11] MEDS ORDERED: IOHEXOL 350 MG/ML 10 ML VIAL (for RAD DIAG) IV ONE (10:42)
--- NOTE | 2017-01-11 11:03 | RADRPT ---
EXAM DATE/TIME: 01/11/2017 10:31 [facility] COMPARISON: CT ABDOMEN & PELVIS W/O CONTRAST, December 31, 2016, 23:16. INDICATIONS : Abdominal pain and loose stools. IV CONTRAST: 96 cc Omnipaque 350 (iohexol) IV ORAL CONTRAST: No oral contrast ingested. RADIATION DOSE: 15.49 CTDIvol (mGy) MEDICAL HISTORY : Irritable bowel syndrome. SURGICAL HISTORY : section. Uterine ablation. ENCOUNTER: Initial ACUITY: 2 weeks PAIN SCALE: 4/10 LOCATION: Bilateral lower quadrant TECHNIQUE: Volumetric scanning of the abdomen and pelvis was performed. Using automated exposure control and ad justment of the mA and/or kV according to patient size, radiation dose was kept as low as reasonably achievable to obtain optimal diagnostic quality images. DICOM format image data is available electro nically for review and comparison. FINDINGS: LOWER LUNGS: The visualized lower lungs are clear. LIVER: Homogeneous density without lesion. There is no dilation of the biliary tree. No calcified gallston es. SPLEEN: Normal size without lesion. PANCREAS: Within normal limits. KIDNEYS: Normal in size and shape. There is no mass, stone or hydronephrosis. ADRENAL GLANDS: Within normal limits. VASCULAR: There is no aortic aneurysm. BOWEL/MESENTERY: Mild diffuse colonic wall thickening is noted suggesting diffuse colitis. Clinical correlation is rec ommended. The appendix is normal. ABDOMINAL WALL: There are tiny stable umbilical and infraumbilical fat-containing hernias. RETROPERITONEUM: There is no lymphadenopathy. BLADDER: No wall thickening or mass. REPRODUCTIVE: Within normal limits. INGUINAL: There is no lymphadenopathy or hernia. MUSCULOSKELETAL: Within normal limits for patient age. CONCLUSION: 1. Mild diffuse colonic wall thickening suggesting possible colitis. Clinical correlation is recommen ded. 2. Tiny fat-containing umbilical and infraumbilical hernias. Damian Ventura MD on January 11, 2017 at 10:56 Board Certified Radiologist. This report was verified electronically.
[2017-01-11] MEDS ORDERED: PRED20 PO (11:45)
[2017-01-11] MEDS ORDERED: METR500T10 PO (11:45)
[2017-01-11] MEDS ORDERED: CIPR500T2 PO (11:45)
--- NOTE | 2017-01-11 20:32 | EKG ---
Date Performed: 01/11/2017 Time Performed: 06:20:20 PTAGE: 46 years EKG: Sinus rhythm NONSPECIFIC T-WAVE ABNORMALITY BORDERLINE ECG NO PREVIOUS TRACING DOCTOR: Messi Willis Interpretating Date/Time 01/11/2017 20:31:51
== END 2017-01-11 12:15 | disposition home or self-care (01) ==
LOC: NEPE 03:44
DX: K52.9 Noninfective gastroenteritis and colitis, unspecified (principal); R19.7 Diarrhea, unspecified; F41.9 Anxiety disorder, unspecified; R00.0 Tachycardia, unspecified; Z72.0 Tobacco use
CPT/HCPCS: 71010; 74177; 80053; 81001; 83690; 83735; 84703; 85025; 85652; 93005; 96374; 96375; 99285; J2270; J2405; J7030; Q9963; Q9967

== ENCOUNTER 2017-01-27 12:40 | Inpatient (IN) | payer OTHER ==
[~2017-01-27] VITALS: Ht 149.9 cm; Wt 82.2 kg
[~2017-01-27 12:40] MED LIST changes: +CIPR500T2 PO; +METR500T10 PO; -MILKSUS PO; +PRED20 PO
[2017-01-27 12:42] VITALS: BP 140/70; PULSE 98; RESP 19; TEMP 98; O2SAT 97
[2017-01-27] MEDS ORDERED: NYST1000 SWISH-SWAL (12:48)
[2017-01-27] MEDS ORDERED: MORPHINE SULFATE 4 MG/ML INJ IV PUSH ONE (13:30)
[2017-01-27] MEDS ORDERED: ONDANSETRON HCL 4 MG/2 ML VIAL IV ONE (13:30)
[2017-01-27] MEDS ORDERED: SODIUM CHLOR 0.9% 1000 ML INJ 1,000 ML IV ONE (13:30)
--- NOTE | 2017-01-27 13:39 | PD ---
HPI Chief Complaint: GI Complaint Time Seen by Provider: 12:52 Travel History International Travel<30 days: No Contact w/Intl Traveler<30days: No Traveled to known affect area: No History of Present Illness HPI So 46 year-old woman who presents to the emergency department complaining of abdominal pain, diarrhea, fever, ongoing despite antibiotic treatment for C. difficile. Patient is a staff member in the emergency department. She was initially seen in the emergency department on January 01 right lower quadrant abdominal pain. She had a leukocytosis. They're concerned about appendicitis. She stayed overnight, received empiric antibiotics, no appendicitis was found. She'll return to the emergent arm about 10 days later with ongoing abdominal pain and some loose stools. CT scan showed colitis. They spoke with GI on-call, start her on Cipro Flagyl and steroids. She followed up with Dr. Mccrary and had a colonoscopy done that reportedly showed colitis. She was still having worsening symptoms and so she had some stool study sent that was positive for C. difficile. She's been on Flagyl again for C. difficile since January 24, 3 days ago. Despite that she's had worsening abdominal pain and back pain, ongoing loose stools and diarrhea, and fevers up to 101. She called her primary doctor, and Dr. Kim, but was not able to be seen despite or worsening symptoms. She is also 15+ pounds since the onset of these symptoms. History Past Medical History Narrative Medical Depression, stable Tetanus Vaccination: < 5 Years Social History Alcohol Use: Yes Tobacco Use: Yes Allergies-Medications (Allergen,Severity, Reaction): Coded Allergies: No Known Allergies (Unverified , 01/11/17) Reported Meds & Prescriptions Reported Meds & Active Scripts Active Metronidazole 500 Mg Tab 500 Mg PO TID Reported Nystatin Liq 100,000 unit/ml Susp 5 Ml SWISH-SWAL QID Lexapro (Escitalopram Oxalate) 20 Mg Tab 20 Mg PO DAILY Review of Systems Except as stated in HPI: all other systems reviewed are Neg Physical Exam Narrative GENERAL: 46-year-old woman, tearful, painful. SKIN: Focused skin assessment warm/dry. NECK: Trachea midline. No JVD. CARDIOVASCULAR: Regular rate and rhythm. No murmur appreciated. RESPIRATORY: No accessory muscle use. Clear to auscultation. Breath sounds equal bilaterally. GASTROINTESTINAL: Abdomen is obese and soft. She has significant tenderness in the right lower quadrant. MUSCULOSKELETAL: No obvious deformities. No edema. NEUROLOGICAL: Awake and alert. No obvious cranial nerve deficits. Motor grossly within normal limits. Normal speech. PSYCHIATRIC: Appropriate mood and affect; insight and judgment normal. Data Data Last Documented VS Vital Signs Date Time Temp Pulse Resp B/P Pulse Ox O2 Delivery O2 Flow Rate FiO2 01/27/17 12:42 98.0 98 19 140/70 97 Orders Complete Blood Count With Diff (01/27/17 13:18) Comprehensive Metabolic Panel (01/27/17 13:18) Lactic Acid (01/27/17 13:18) Iv Access Insert/Monitor (01/27/17 13:18) Sodium Chlor 0.9% 1000 Ml Inj (Ns 1000 M (01/27/17 13:30) Morphine Inj (Morphine Inj) (01/27/17 13:30) Ondansetron Inj (Zofran Inj) (01/27/17 13:30) Admit Order (Ed Use Only) (01/27/17 ) Labs Laboratory Tests Test 01/27/17 13:40 White Blood Count 7.3 TH/MM3 Red Blood Count 4.87 MIL/MM3 Hemoglobin 15.1 GM/DL Hematocrit 45.2 % Mean Corpuscular Volume 92.8 FL Mean Corpuscular Hemoglobin 31.1 PG Mean Corpuscular Hemoglobin 33.5 % Concent Red Cell Distribution Width 14.4 % Platelet Count 258 TH/MM3 Mean Platelet Volume 7.5 FL Neutrophils (%) (Auto) 64.3 % Lymphocytes (%) (Auto) 25.7 % Monocytes (%) (Auto) 7.9 % Eosinophils (%) (Auto) 1.6 % Basophils (%) (Auto) 0.5 % Neutrophils # (Auto) 4.7 TH/MM3 Lymphocytes # (Auto) 1.9 TH/MM3 Monocytes # (Auto) 0.6 TH/MM3 Eosinophils # (Auto) 0.1 TH/MM3 Basophils # (Auto) 0.0 TH/MM3 CBC Comment DIFF FINAL Differential Comment Sodium Level 141 MEQ/L Potassium Level 3.5 MEQ/L Chloride Level 106 MEQ/L Carbon Dioxide Level 27.8 MEQ/L Anion Gap 7 MEQ/L Blood Urea Nitrogen 8 MG/DL Creatinine 0.70 MG/DL Estimat Glomerular Filtration 89 ML/MIN Rate Random Glucose 85 MG/DL Lactic Acid Level 0.9 mmol/L Calcium Level 9.2 MG/DL Total Bilirubin 0.3 MG/DL Aspartate Amino Transf 18 U/L (AST/SGOT) Alanine Aminotransferase 32 U/L (ALT/SGPT) Alkaline Phosphatase 84 U/L Total Protein 7.7 GM/DL Albumin 4.2 GM/DL [facility] Medical Decision Making Medical Screen Exam Complete: Yes Emergency Medical Condition: Yes Interpretation(s) LABS: CBC unremarkable. CMP unremarkable Lactate normal Differential Diagnosis C. difficile, dehydration, uncontrolled pain, other Narrative Course Medical decision making This is a 46-year-old woman who has worsening symptoms from C. difficile colitis. We'll check labs, pain control, IV fluids, reassess. Likely admission for treatment. Diagnosis Primary Impression: Colitis Additional Impression: Intractable abdominal pain Zechariah Lowe MD Jan 27, 2017 13:39
[2017-01-27 14:05] LABS: AUTOMATED NEUTROPHIL # 4.7 TH/MM3 (1.8-7.7); BASOPHIL % 0.5 % (0.0-2.0); EOSINOPHIL # 0.1 TH/MM3 (0-0.4); EOSINOPHIL % 1.6 % (0.0-4.0); HEMATOCRIT 45.2 % (35.0-46.0); HEMO FLAGS DIFF FINAL; LYMPH % 25.7 % (9.0-44.0); LYMPHOCYTE # 1.9 TH/MM3 (1.0-4.8); MEAN CELL VOLUME 92.8 FL (80.0-100.0); MEAN CORPUSCULAR HEMOGLOBIN 31.1 PG (27.0-34.0); MEAN CORPUSCULAR HGB CONC 33.5 % (32.0-36.0); MONO % 7.9 % (0.0-8.0); NEUT % 64.3 % (16.0-70.0); PLATELET COUNT 258 TH/MM3 (150-450); RED BLOOD COUNT 4.87 MIL/MM3 (4.00-5.30); RED CELL DISTRIBUTION WIDTH 14.4 % (11.6-17.2); WHITE BLOOD COUNT 7.3 TH/MM3 (4.0-11.0)
[2017-01-27 14:18] LABS: ALT (GPT) 32 U/L (10-53); ANION GAP 7 MEQ/L (5-15); AST (GOT) 18 U/L (15-37); BICARBONATE 27.8 MEQ/L (21.0-32.0); BLOOD UREA NITROGEN 8 MG/DL (7-18); CHLORIDE 106 MEQ/L (98-107); GLOMERULAR FILTRATION RATE 89 ML/MIN (>89); POTASSIUM 3.5 MEQ/L (3.5-5.1); SODIUM (NA) 141 MEQ/L (136-145)
[2017-01-27 14:21] LABS: ALKALINE PHOSPHATASE 84 U/L (45-117); TOTAL BILIRUBIN ADULT 0.3 MG/DL (0.2-1.0)
--- NOTE | 2017-01-27 14:56 | HHI.HP ---
HPI Service [facility] Hospitalists Primary Care Physician No Primary Care Physician Admission Diagnosis C. difficile colitis, intractable pain Chief Complaint: diarrhea, abdome pain Travel History International Travel<30 Days: No Contact w/Intl Traveler <30 Da: No Traveled to Known Affected Are: No History of Present Illness Pt is 46 yo who presents to [place] for 3rd time over past 3-4 weeks. She had a dental abscess and was given a week of clindamycin then had dental extraction. Two weeks later presented here with right side abomen pain and wbc 20k. CT a/p negative for acute process. ED gave zosyn and questioned appendicitis. Her sx's improved and she went home. The returned wiith abdomen pain and diarrhea and CT a/p showing pancolitis. Given cipro/flagyl/predinsone by ED and pt saw GI next day. Pt had c scope and just had polpys removed but no colitis noted. C diff was positive and flagyl resumed 3 days ago. But she continues to have up to 6 or o7 bm per day and thinks it smells like c diff. Alot of diffuse abdomen pain and LBP. some vomiting. Review of Systems Other diffuse abdomen pain diarrhea lbp possible dysuria n/v Past Family Social History Past Medical History depression c sections endometrial ablation exp lap for "lysis of adhesions in pelvis" Reported Medications Metronidazole 500 Mg Tab 500 Mg PO qid Lexapro (Escitalopram Oxalate) 20 Mg Tab 20 Mg PO DAILY Allergies: Coded Allergies: No Known Allergies (Unverified , 01/11/17) Family History NC Social History 1ppd tob. no etoh Physical Exam Vital Signs heent neg heart reg lung cta abd diffuse tender. no rebound. bs ext no edema no cva tenderness Vital Signs Date Time Temp Pulse Resp B/P Pulse Ox O2 Delivery O2 Flow Rate FiO2 01/27/17 12:42 98.0 98 19 140/70 97 Laboratory Laboratory Tests Test 01/27/17 13:40 White Blood Count 7.3 Red Blood Count 4.87 Hemoglobin 15.1 Hematocrit 45.2 Mean Corpuscular Volume 92.8 Mean Corpuscular Hemoglobin 31.1 Mean Corpuscular Hemoglobin 33.5 Concent Red Cell Distribution Width 14.4 Platelet Count 258 Mean Platelet Volume 7.5 Neutrophils (%) (Auto) 64.3 Lymphocytes (%) (Auto) 25.7 Monocytes (%) (Auto) 7.9 Eosinophils (%) (Auto) 1.6 Basophils (%) (Auto) 0.5 Neutrophils # (Auto) 4.7 Lymphocytes # (Auto) 1.9 Monocytes # (Auto) 0.6 Eosinophils # (Auto) 0.1 Basophils # (Auto) 0.0 CBC Comment DIFF FINAL Differential Comment Sodium Level 141 Potassium Level 3.5 Chloride Level 106 Carbon Dioxide Level 27.8 Anion Gap 7 Blood Urea Nitrogen 8 Creatinine 0.70 Estimat Glomerular Filtration 89 Rate Random Glucose 85 Lactic Acid Level 0.9 Calcium Level 9.2 Total Bilirubin 0.3 Aspartate Amino Transf 18 (AST/SGOT) Alanine Aminotransferase 32 (ALT/SGPT) Alkaline Phosphatase 84 Total Protein 7.7 Albumin 4.2 Result Diagram: 01/27/17 1340 01/27/17 1340 Assessment and Plan Problem List: (1) Intractable abdominal pain Status: Acute Plan: Pt is 46 yo who presents to [place] for 3rd time over past 3-4 weeks. She had a dental abscess and was given a week of clindamycin then had dental extraction. Two weeks later presented here with right side abomen pain and wbc 20k. CT a/p negative for acute process. ED gave zosyn and questioned appendicitis. Her sx's improved and she went home. The returned wiith abdomen pain and diarrhea and CT a/p showing pancolitis. Given cipro/flagyl/predinsone by ED and pt saw GI next day. Pt had c scope and just had polpys removed but no colitis noted. C diff was positive and flagyl resumed 3 days ago. But she continues to have up to 6 or o7 bm per day and thinks it smells like c diff. Alot of diffuse abdomen pain and LBP. some vomiting. change flagyl to po vanco ivf pain control stool studies. diet as tolerated dvt prophylaxis check u/a if not improvement then repeat ct a/p. (2) C. difficile colitis Status: Acute Plan: see above Physician Certification 2 Midnight Certification Type: Admission for Inpatient Services Order for Inpatient Services 3The services are ordered in accordance with Medicare regulations or non- Medicare payer requirements, as applicable. In the case of services not specified as inpatient-only, they are appropriately provided as inpatient services in accordance with the 2-midnight benchmark. Estimated LOS (days): 3 3 days is the estimated time the patient will need to remain in the hospital, assuming treatment plan goals are met and no additional complications. Post-Hospital Plan: Home Colin Davidson MD Jan 27, 2017 14:56 services in accordance with the 2-midnight benchmark. Estimated LOS (days): 3 3 days is the estimated time the patient will need to remain in the hospital, assuming treatment plan goals are met and no additional complications. Post-Hospital Plan: Home Colin Davidson MD Jan 27, 2017 14:56
[2017-01-27] MEDS ORDERED: ONDANSETRON HCL 4 MG/2 ML VIAL IV PUSH PRN (15:00)
[2017-01-27] MEDS ORDERED: MORPHINE SULFATE 4 MG/ML INJ IV PUSH PRN (15:00)
[2017-01-27] MEDS: NS + KCL 20 MEQ INJ 1,000 ML IV SCH (16:03)
[2017-01-27] MEDS: ACETAMINOPHEN/CODEINE 300 MG/30 MG TAB PO PRN ×2 (16:03→20:43)
[2017-01-27] MEDS: VANCOMYCIN 500 MG VIAL (FOR ORAL USE ONLY) PO SCH ×3 (16:03→20:44)
[2017-01-27 16:20] LABS: BLOOD, URINE NEG (NEG); GLUCOSE,URINE NEG (NEG); KETONE, URINE NEG (NEG); NITRITE,URINE NEG (NEG); SQUAMOUS EPITHELIAL CELL URINE <1 /hpf (0-5); URINE COLOR LIGHT-YELLOW (YELLW/STRAW)
[2017-01-27 16:22] LABS: COMMENT (UR) CULT NOT INDICATED; CULTURE IF INDICATED CULT NOT INDICATED
[2017-01-27 17:06] VITALS: BP 134/76; TEMP 98.9
[2017-01-27 20:00] VITALS: BP 124/59; PULSE 69; RESP 22; TEMP 96.6; O2SAT 96
[2017-01-28] VITALS: BP 122/59; PULSE 64; RESP 20; TEMP 96.4; O2SAT 95
[2017-01-28 00:47] LABS: C. DIFF EPI 027 PRESUMPTIVE POSITIVE (NEGATIVE)
[2017-01-28 00:49] LABS: C. DIFF TOXIN PCR POSITIVE (NEGATIVE)
[2017-01-28] MEDS: NS + KCL 20 MEQ INJ 1,000 ML IV SCH (02:18)
[2017-01-28] MEDS: ACETAMINOPHEN/CODEINE 300 MG/30 MG TAB PO PRN ×4 (02:28→19:56)
[2017-01-28 08:00] VITALS: BP 112/56; PULSE 70; RESP 19; TEMP 97.7; O2SAT 96
[2017-01-28] MEDS: ESCITALOPRAM OXALATE 20 MG TAB PO SCH (08:54)
[2017-01-28] MEDS: VANCOMYCIN 500 MG VIAL (FOR ORAL USE ONLY) PO SCH ×4 (08:55→19:56)
[2017-01-28] MEDS: CYCLOBENZAPRINE HCL 10 MG TAB PO SCH ×3 (11:15→19:56)
[2017-01-28] MEDS: SODIUM CHLOR 0.9% 1000 ML INJ 1,000 ML IV SCH ×2 (11:40→20:00)
[2017-01-28 12:00] VITALS: BP 120/66; PULSE 70; RESP 19; TEMP 97.7; O2SAT 96
[2017-01-28] MEDS ORDERED: LACTOBACILLUS ACIDOPHILUS TAB PO ONE (13:00)
--- NOTE | 2017-01-28 15:11 | HHI.PR ---
Subjective Remarks diarrhea less. looks more comfortable. Objective Vitals heart reg lung cta abd s/nt ext no edema Vital Signs Date Time Temp Pulse Resp B/P Pulse Ox O2 Delivery O2 Flow Rate FiO2 01/28/17 12:00 97.7 70 19 120/66 96 01/28/17 08:00 97.7 70 19 112/56 96 01/28/17 00:00 96.4 64 20 122/59 95 01/27/17 20:00 96.6 69 22 124/59 96 01/27/17 17:06 98.9 87 19 134/76 98 01/27/17 01/27/17 01/28/17 15:00 23:00 07:00 Intake Total 795 ml 1213 ml Output Total 1600 ml Balance 795 ml -387 ml Intake Oral 320 ml 320 ml IV Total 475 ml 893 ml Output Urine Total 1600 ml # Voids 2 # Bowel Movements 1 0 Result Diagram: 01/27/17 1340 01/27/17 1340 A/P Problem List: (1) Intractable abdominal pain Status: Acute Plan: Pt is 46 yo who presents to [facility] for 3rd time over past 3-4 weeks. She had a dental abscess and was given a week of clindamycin then had dental extraction. Two weeks later presented here with right side abomen pain and wbc 20k. CT a/p negative for acute process. ED gave zosyn and questioned appendicitis. Her sx's improved and she went home. The returned wiith abdomen pain and diarrhea and CT a/p showing pancolitis. Given cipro/flagyl/predinsone by ED and pt saw GI next day. Pt had c scope and just had polpys removed but no colitis noted. C diff was positive and flagyl resumed 3 days ago. But she continues to have up to 6 or o7 bm per day and thinks it smells like c diff. Alot of diffuse abdomen pain and LBP. some vomiting. seems to be improving today changed flagyl to po vanco on admission ivf pain control stool studies. diet as tolerated dvt prophylaxis muscle relaxer for back spasms. (2) C. difficile colitis Status: Acute Plan: see above Colin Davidson MD Jan 28, 2017 15:11
[2017-01-28 16:00] VITALS: BP 129/63; PULSE 94; RESP 19; TEMP 98.3; O2SAT 97
[2017-01-28] MEDS: LACTOBACILLUS ACIDOPHILUS TAB PO SCH (19:56)
[2017-01-28 20:00] VITALS: BP 135/65; PULSE 79; RESP 18; TEMP 97.6; O2SAT 96
[2017-01-29] VITALS: BP 121/57; PULSE 70; RESP 18; TEMP 97.8; O2SAT 95
[2017-01-29] MEDS: ACETAMINOPHEN/CODEINE 300 MG/30 MG TAB PO PRN ×2 (05:11→10:25)
[2017-01-29] MEDS: CYCLOBENZAPRINE HCL 10 MG TAB PO SCH (05:11)
[2017-01-29 08:00] VITALS: BP_SYST 129; BP_SYST 133; BP_DIAS 58; BP_DIAS 60; PULSE 74; PULSE 77; RESP 16; RESP 19; TEMP 96.9; TEMP 97.8; O2SAT 96; O2SAT 98
[2017-01-29] MEDS: ESCITALOPRAM OXALATE 20 MG TAB PO SCH (08:06)
[2017-01-29] MEDS: VANCOMYCIN 500 MG VIAL (FOR ORAL USE ONLY) PO SCH (08:06)
[2017-01-29] MEDS: LACTOBACILLUS ACIDOPHILUS TAB PO SCH (08:06)
[2017-01-29] MEDS: SODIUM CHLOR 0.9% 1000 ML INJ 1,000 ML IV SCH (08:07)
--- NOTE | 2017-01-29 10:52 | HHI.PR ---
Subjective Remarks doing great. no diarrhea. passing flatus abdomen no pain tolerating diet no vomiting Objective Vitals heart reg lung cta abd s/nt ext no edema Vital Signs Date Time Temp Pulse Resp B/P Pulse Ox O2 Delivery O2 Flow Rate FiO2 01/29/17 08:00 96.9 74 19 133/58 98 01/29/17 08:00 97.8 77 16 129/60 96 01/29/17 00:00 97.8 70 18 121/57 95 01/28/17 20:00 97.6 79 18 135/65 96 01/28/17 16:00 98.3 94 19 129/63 97 01/28/17 12:00 97.7 70 19 120/66 96 01/28/17 01/28/17 01/29/17 15:00 23:00 07:00 Intake Total 1096 ml 918 ml 975 ml Output Total 650 ml Balance 446 ml 918 ml 975 ml Intake Oral 750 ml 480 ml 240 ml IV Total 346 ml 438 ml 735 ml Output Urine Total 650 ml # Voids 2 2 # Bowel Movements 0 Result Diagram: 01/27/17 1340 01/27/17 1340 A/P Problem List: (1) Intractable abdominal pain Status: Acute Plan: Pt is 46 yo who presents to [place] for 3rd time over past 3-4 weeks. She had a dental abscess and was given a week of clindamycin then had dental extraction. Two weeks later presented here with right side abomen pain and wbc 20k. CT a/p negative for acute process. ED gave zosyn and questioned appendicitis. Her sx's improved and she went home. The returned wiith abdomen pain and diarrhea and CT a/p showing pancolitis. Given cipro/flagyl/predinsone by ED and pt saw GI next day. Pt had c scope and just had polpys removed but no colitis noted. C diff was positive and flagyl resumed 3 days ago. But she continues to have up to 6 or o7 bm per day and thinks it smells like c diff. Alot of diffuse abdomen pain and LBP. some vomiting. Pt reports feeling great and eager for d/c home she will f/u with her new pcp changed flagyl to po vanco on admission ivf pain control stool studies. diet as tolerated dvt prophylaxis muscle relaxer for back spasms. doing well. d/c home. new pcp f/u this week. (2) C. difficile colitis Status: Acute Plan: see above Colin Davidson MD Jan 29, 2017 10:52
--- NOTE | 2017-01-29 11:00 | HHI.DCPOC ---
Discharge Care Plan Diagnosis: (1) C. difficile colitis Goals to Promote Your Health * To prevent worsening of your condition and complications * To maintain your health at the optimal level Directions to Meet Your Goals Take your medications as prescribed Follow your dietary instruction Follow activity as directed Keep your appointments as scheduled Take your immunizations and boosters as scheduled If your symptoms worsen call your PCP, if no PCP go to Urgent Care Center or Emergency Room Smoking is Dangerous to Your Health. Avoid second hand smoke Call the 24-hour hour crisis hotline for domestic abuse at Colin Davidson MD Jan 29, 2017 11:00
[2017-01-29] MEDS ORDERED: VANC500I3 PO (11:01)
[2017-01-29] MEDS ORDERED: LACT PO (11:03)
[2017-01-29] MEDS ORDERED: CYCL1TAB29 PO (11:03)
[2017-01-29] MEDS ORDERED: ACET-534 PO (11:06)
== END 2017-01-29 12:20 | disposition home or self-care (01) | DRG 373 ==
LOC: NEPD 12:40 → NEDA 14:39 → OBSVTOIN 15:00 → N07B 17:12
PROVIDERS: ADMIT Hospitalist; ATTEND Hospitalist
DX: A04.7 Enterocolitis due to Clostridium difficile (principal); Z72.0 Tobacco use
CPT/HCPCS: 76937; 80053; 81001; 83605; 85025; 87493; 87506; 96374; 96375; J2270; J2405; J3480; J7030